=== PATIENT | female | born 1935 | race Caucasian/White ===

== ENCOUNTER 2016-12-12 16:25 | Observation (INO) ==
[2016-12-12] MEDS ORDERED: 0.9 % Sodium Chloride 1,000 ML IVC ONE (16:40)
--- NOTE | 2016-12-12 16:47 | Emergency Department Note ---
Disposition Clinical Impression: Dehydration, Nausea vomiting and diarrhea, Acute kidney injury Disposition: Admitted As Inpatient Condition: Fair Referrals: Sherly Gonzalez MD [Primary Care Provider] - Forms: ED Satisfaction Letter Time of Disposition: 18:17 Nausea/Vomiting/Diarrhea HPI - General Chief complaint: ED Nausea/Vomiting/Diarrhea Stated complaint: Flu-like symptoms Time Seen by Provider: 12/12/16 16:40 Source: family Mode of arrival: ambulatory Limitations: no limitations Nursing Notes Reviewed: Yes Vital Signs Reviewed: Yes - History of Present Illness HPI Narrative: 81-year-old who comes in with history of a cough and nausea vomiting and diarrhea. Patient states she's been sick for a week. Her husbands here with her with similar complaints. Patient had diarrhea yesterday none today also had vomiting yesterday none today. Pt Subjective Complaint: nausea, vomiting, diarrhea Onset (ago): day(s) Description of emesis: food contents (7) Description of Diarrhea: water, mucous Associated Abdominal Pain: No - Related Data Home Medications Medication Instructions Recorded Confirmed Aspirin Enteric Coated [Aspirin EC] 81 mg PO QPM 12/12/16 12/12/16 Biotin 10 mg PO QPM 12/12/16 12/12/16 Clopidogrel [Plavix] 75 mg PO QAM 12/12/16 12/12/16 Levothyroxine [Synthroid] 50 mcg PO QAM 12/12/16 12/12/16 Lisinopril/Hydrochlorothiazide 1 each PO QAM 12/12/16 12/12/16 [Zestoretic 10-12.5 mg Tablet] Simvastatin [Zocor] 40 mg PO QPM 12/12/16 12/12/16 Allergies Allergy/AdvReac Type Severity Reaction Status Date / Time No Known Allergies Allergy Verified 12/12/16 16:29 Past Medical History - Past Medical History Medical history: Reports: hyperlipidemia, kidney stones - Social History Smoking Status: Former smoker Alcohol use: Reports: none Drug use: Reports: none Course - Reevaluation(s) Reevaluation #1: 81-year-old with flulike symptoms nausea vomiting and diarrhea over the last several days. It looks like she's got renal insufficiency of there are no old labs compared to she says she hasn't been eating and drinking. We will admit for IV hydration and repeat labs. Time: 18:16 - Consultations Consultation #1: Chest with Halina Lopes's nurse practitioner, admit Time: 18:54 Vital Signs Temperature 97.7 F 12/12/16 16:26 Pulse Rate 64 12/12/16 16:26 Respiratory Rate 18 12/12/16 16:26 Blood Pressure 157/75 12/12/16 16:26 O2 Sat by Pulse Oximetry 95 12/12/16 16:26 Temperature 97.7 F 12/12/16 16:26 Pulse Rate 77 12/12/16 18:29 Respiratory Rate 18 12/12/16 18:29 Blood Pressure 148/70 12/12/16 18:29 O2 Sat by Pulse Oximetry 99 12/12/16 18:29 Oxygen Delivery Oxygen Delivery Room Air Nausea/Vomiting/Diarrhea - Lab Data Result diagrams: 12/12/16 17:13 12/12/16 17:13 Lab Results 12/12/16 12/12/16 12/12/16 Range/Units 17:13 17:13 17:13 WBC 3.2 L (4.3-11.1) K/mcL RBC 4.63 (3.82-4.97) M/mcL Hgb 13.4 (11.5-15.4) g/dL Hct 38.9 (35.3-44.9) % MCV 84.0 (83.0-100.0) fL MCH 28.9 (28.0-33.3) pg MCHC 34.4 (31.6-35.5) g/dL RDW 12.7 (11.5-14.5) % Plt Count 202 (140-400) K/mcL MPV 9.8 (9.4-12.4) fL Immature Gran % 0.3 (0-4) % Seg Neutrophils % 47.4 % Lymphocytes % 42.6 % Monocytes % 8.8 % Eosinophils % 0.3 % Basophils % 0.6 % Neutrophils # 1.5 L (1.6-8.9) K/mcL Lymphocytes # 1.4 (0.6-4.6) K/mcL Monocytes # 0.3 (0.0-1.3) K/mcL Eosinophils # 0.0 (0.0-0.6) K/mcL Basophils # 0.0 (0.0-0.2) K/mcL Reactive Lymphocytes Present A (Not Present) Platelet Estimate Normal (Normal) Sodium 127 L (136-145) mEq/L Potassium 4.5 (3.5-4.5) mEq/L Chloride 95 L (98-109) mEq/L Carbon Dioxide 17 L (19-29) mEq/L BUN 25 H (7-20) mg/dL Creatinine 1.19 H (0.57-1.11) mg/dL Est GFR ( Amer) 53 L (> 60) Est GFR (Non-Af Amer) 44 L (> 60) BUN/Creatinine Ratio 21 (6-26) Glucose 99 (70-99) mg/dL Calculated Osmolality 268 L (280-300) Calcium 9.2 (8.6-10.8) mg/dL Total Bilirubin 0.9 (0.2-1.2) mg/dL Direct Bilirubin 0.4 (0.0-0.5) mg/dL Indirect Bilirubin 0.5 (0.0-1.2) mg/dL AST 29 (5-34) Units/L ALT 13 (0-55) Units/L Alkaline Phosphatase 84 (38-126) Units/L Troponin I (0-0.03) ng/mL Serum Total Protein 7.5 (6.0-8.3) g/dL Albumin 3.7 (3.5-5.0) g/dL Globulin 3.8 H (2.4-3.5) g/dL Albumin/Globulin Ratio 1.0 L (1.1-2.2) Amylase 65 (25-125) Units/L Lipase 31 (8-78) Units/L 04/05/17 Range/Units 17:13 WBC (4.3-11.1) K/mcL RBC (3.82-4.97) M/mcL Hgb (11.5-15.4) g/dL Hct (35.3-44.9) % MCV (83.0-100.0) fL MCH (28.0-33.3) pg MCHC (31.6-35.5) g/dL RDW (11.5-14.5) % Plt Count (140-400) K/mcL MPV (9.4-12.4) fL Immature Gran % (0-4) % Seg Neutrophils % % Lymphocytes % % Monocytes % % Eosinophils % % Basophils % % Neutrophils # (1.6-8.9) K/mcL Lymphocytes # (0.6-4.6) K/mcL Monocytes # (0.0-1.3) K/mcL Eosinophils # (0.0-0.6) K/mcL Basophils # (0.0-0.2) K/mcL Reactive Lymphocytes (Not Present) Platelet Estimate (Normal) Sodium (136-145) mEq/L Potassium (3.5-4.5) mEq/L Chloride (98-109) mEq/L Carbon Dioxide (19-29) mEq/L BUN (7-20) mg/dL Creatinine (0.57-1.11) mg/dL Est GFR ( Amer) (> 60) Est GFR (Non-Af Amer) (> 60) BUN/Creatinine Ratio (6-26) Glucose (70-99) mg/dL Calculated Osmolality (280-300) Calcium (8.6-10.8) mg/dL Total Bilirubin (0.2-1.2) mg/dL Direct Bilirubin (0.0-0.5) mg/dL Indirect Bilirubin (0.0-1.2) mg/dL AST (5-34) Units/L ALT (0-55) Units/L Alkaline Phosphatase (38-126) Units/L Troponin I 0.02 (0-0.03) ng/mL Serum Total Protein (6.0-8.3) g/dL Albumin (3.5-5.0) g/dL Globulin (2.4-3.5) g/dL Albumin/Globulin Ratio (1.1-2.2) Amylase (25-125) Units/L Lipase (8-78) Units/L - EKG Data EKG attestation: Yes I reviewed and interpreted this EKG. EKG shows normal: sinus rhythm Rate: normal Rhythm: NSR ST segment depression in: v3 Interpretation: no acute changes
[2016-12-12 17:26] LABS: Basophils % 0.6 %; Eosinophils % 0.3 %; Hematocrit 38.9 % (35.3-44.9); Hemoglobin 13.4 g/dL (11.5-15.4); Immature Granulocytes % 0.3 % (0-4); Lymphocytes # 1.4 K/mcL (0.6-4.6); Lymphocytes % 42.6 %; Mean Corpuscular HGB Conc 34.4 g/dL (31.6-35.5); Mean Corpuscular Hemoglobin 28.9 pg (28.0-33.3); Mean Platelet Volume 9.8 fL (9.4-12.4); Monocytes # 0.3 K/mcL (0.0-1.3); Monocytes % 8.8 %; Neutrophils # 1.5 K/mcL (1.6-8.9); Platelet Count 202 K/mcL (140-400); Red Blood Count 4.63 M/mcL (3.82-4.97); Red Cell Distribution Width 12.7 % (11.5-14.5); Segmented Neutrophils % 47.4 %
[2016-12-12 17:41] LABS: Albumin 3.7 g/dL (3.5-5.0); Bilirubin,Direct 0.4 mg/dL (0.0-0.5); Bilirubin,Indirect 0.5 mg/dL (0.0-1.2); Bilirubin,Total 0.9 mg/dL (0.2-1.2); Calcium 9.2 mg/dL (8.6-10.8); Globulin 3.8 g/dL (2.4-3.5); Potassium 4.5 mEq/L (3.5-4.5); Total Protein 7.5 g/dL (6.0-8.3)
[2016-12-12 18:01] LABS: Platelet Estimate Normal (Normal); Reactive Lymphocytes Present (Not Present)
[2016-12-12] MEDS ORDERED: Ondansetron ODT 4 MG TAB.RAPDIS SL PRN (20:23)
[2016-12-12] MEDS ORDERED: Naloxone 0.4 MG/ML INJ IVP PRN (20:23)
[2016-12-12] MEDS ORDERED: 0.9 % Sodium Chloride 1,000 ML IVC SCH (20:30)
--- NOTE | 2016-12-12 21:18 | Internal Med History&Physical ---
<Deedee Rayo M - Last Filed: 12/12/16 21:32> Date of Encounter: 12/12/16 Time of Encounter: 20:56 Assessment and Plan (1) Dehydration Current visit: Yes Status: Acute Patient with reports of several day history of nausea, vomiting, diarrhea. Labs show electrolyte abnormalities and KAVITHA consistent with dehydration. 1L bolus given by ED. IV fluids 0.9 NS at 75mL/hr. Diet as tolerated, encourage PO fluids. Recheck labs in the morning. (2) Hyponatremia Current visit: Yes Status: Acute Patient's sodium is 127. Will hold her HCTZ. Hydrate overnight. Recheck chemistry in the morning. (3) Acute kidney injury Current visit: Yes Status: Acute BUN 25 and Cr 1.19. Likely due to poor oral intake, nausea, vomiting and dehydration. 1L bolus given in ED. Will hydrate overnight and recheck chemistry in the morning. (4) Nausea vomiting and diarrhea Current visit: Yes Status: Acute Patient reports several day history of nausea, vomiting and diarrhea. had similar symptoms, likely viral gastroenteritis. Patient reports symptoms have been improving and she is hungry. Diet as tolerated. Iv fluids 0.9NS at 75mL/hr. Encourage PO fluids. (5) DVT prophylaxis Current visit: Yes Status: Acute Ambulate with assistance anti-embolic stockings Lovenox 40mg SQ daily Internal Medicine - H&P: HPI Chief complaint: nausea, vomiting, diarrhea Admitted From: Emergency Dept Plans for Post Hospital Care: Home History of present illness: Ms. Charles is a 81 year old female with hypothyroid, HTN, HLD, CAD s/p stent to RCA, history of kidney stones, presented to the emergency department today with complaints of nausea, vomiting and diarrhea. Patient reports about a week ago she had a "cold" with nasal congestion and cough, and a few days later she started having the nausea, vomiting and diarrhea. She reports that this morning she almost passed out and so went to her PCP's office, who sent her to the ED. She denies any headache, chest pain, palpitations, shortness of breath , numbness or tingling. She denies any fever, chills, night sweats. Evaluation in the ED included a CXR which showed mild left basilar atelectasis. EKG showed sinus rhythm. WBC count was below normal at 3.2. Electrolytes were abnormal with hyponatremia, sodium of 127, chloride of 95, CO2 of 17, BUN and Creatinine elevated at 25 and 1.19, respectively. Potassium normal at 4.5. On exam, patient is alert and oriented, in no distress. Heart has regular rate and rhythm, lungs with mild expiratory rhonchi on the right. Abdomen is soft, nontender, with normal bowel sounds. Past Med Surg Social Fam HX - Past Medical History Medical history: coronary artery disease, hyperlipidemia, hypertension, kidney stones, thyroid disease - Past Surgical History Surgical History: angioplasty/stent, other (Removal of benign brain tumor) - Social History Smoking Status: Former smoker Alcohol use: none Drug use: none - Family History Father Living Status: Hx Family Cardiac Disorders: Yes Mother Living Status: Hx Family Cardiac Disorders: Yes Internal Medicine - H&P: Meds Aspirin Enteric Coated [Aspirin EC] 81 mg PO QPM 12/12/16 [History] Biotin 10 mg PO QPM 12/12/16 [History] Clopidogrel [Plavix] 75 mg PO QAM 12/12/16 [History] Levothyroxine [Synthroid] 50 mcg PO QAM 12/12/16 [History] Lisinopril/Hydrochlorothiazide [Zestoretic 10-12.5 mg Tablet] 1 each PO QAM 01/23 [History] Simvastatin [Zocor] 40 mg PO QPM 12/12/16 [History] Allergies No Known Allergies Allergy (Verified 12/12/16 16:29) All Systems PM: A 10-system review of systems was performed and is negative for pertinent findings except as documented above in the HPI. - Constitutional Constitutional: no chills, no fever(s), no night sweats - EENT Eyes: no change in vision, no discharge, no pain, no photophobia Ears: no ear discharge, no ear pain, no tinnitus Nose, mouth and throat: nasal congestion, nasal discharge, no dysphagia, no neck pain, no sore throat - Cardiovascular Cardiovascular ROS IM: no chest pain, no diaphoresis, no dyspnea, no lightheadedness, no palpitations, no syncope - Respiratory Respiratory: cough, no dyspnea, no wheezing, no excessive phlegm production - Gastrointestinal Gastrointestinal: diarrhea, nausea, vomiting, no abdominal pain, no hematemesis , no hematochezia, no melena - Genitourinary Genitourinary: no change in urinary stream, no dysuria, no flank pain, no hematuria - Musculoskeletal Musculoskeletal ROS IM: no numbness, no tingling - Integumentary Integumentary IM: no rash, no unusual bruising - Neurological Neurological ROS: no confusion, no convulsions, no focal weakness, no numbness, no tingling, no tremor(s) - Hematologic/Lymphatic Hematologic/Lymphatic: no easy bruising - Constitutional Vitals: Temp Pulse Resp BP Pulse Ox 97.5 F L 69 16 144/59 96 12/12/16 19:28 12/12/16 19:28 12/12/16 19:28 12/12/16 19:28 12/12/16 19:28 General appearance: Present: A&O X 3, pleasant, no acute distress Exam: Patient poor historian and confuses timelines. - Head Head exam: Present: atraumatic, normocephalic - Eye Eye exam: Present: PERRL, conjuntiva pink, sclera anicteric Pupils: Present: PERRL - ENT ENT exam: Present: mucous membranes dry - Neck Neck exam general surgery: Present: supple, trachea midline. Absent: lymphadenopathy - Respiratory Respiratory exam: Present: CTAB. Absent: accessory muscle use, rales, rhonchi, wheezes - Cardiovascular Cardiovascular exam: Present: RRR, +S1, +S2. Absent: diastolic murmur, gallop, rubs, systolic murmur - GI/Abdominal GI/Abdominal exam: Present: normal bowel sounds, soft, no peritoneal signs. Absent: distended, tenderness - Extremities Exam Extremities exam: Present: warm, radial pulses palpable and symetrical. Absent : calf tenderness, cyanotic, pedal edema - Neurological Exam Neurological exam: Present: CN II-XII intact, oriented X3, no focal deficits. Absent: facial droop, speech deficit - Skin Skin exam: Present: dry, intact Internal Med - H&P Results - Labs CBC & Chem 7: 12/12/16 17:13 12/12/16 17:13 Labs: All Lab Results (24 Hours) 12/12/16 12/12/16 12/12/16 Range/Units 17:13 17:13 17:13 WBC 3.2 L (4.3-11.1) K/mcL RBC 4.63 (3.82-4.97) M/mcL Hgb 13.4 (11.5-15.4) g/dL Hct 38.9 (35.3-44.9) % MCV 84.0 (83.0-100.0) fL MCH 28.9 (28.0-33.3) pg MCHC 34.4 (31.6-35.5) g/dL RDW 12.7 (11.5-14.5) % Plt Count 202 (140-400) K/mcL MPV 9.8 (9.4-12.4) fL Immature Gran % 0.3 (0-4) % Seg Neutrophils % 47.4 % Lymphocytes % 42.6 % Monocytes % 8.8 % Eosinophils % 0.3 % Basophils % 0.6 % Neutrophils # 1.5 L (1.6-8.9) K/mcL Lymphocytes # 1.4 (0.6-4.6) K/mcL Monocytes # 0.3 (0.0-1.3) K/mcL Eosinophils # 0.0 (0.0-0.6) K/mcL Basophils # 0.0 (0.0-0.2) K/mcL Reactive Lymphocytes Present A (Not Present) Platelet Estimate Normal (Normal) Sodium 127 L (136-145) mEq/L Potassium 4.5 (3.5-4.5) mEq/L Chloride 95 L (98-109) mEq/L Carbon Dioxide 17 L (19-29) mEq/L BUN 25 H (7-20) mg/dL Creatinine 1.19 H (0.57-1.11) mg/dL Est GFR ( Amer) 53 L (> 60) Est GFR (Non-Af Amer) 44 L (> 60) BUN/Creatinine Ratio 21 (6-26) Glucose 99 (70-99) mg/dL Calculated Osmolality 268 L (280-300) Calcium 9.2 (8.6-10.8) mg/dL Total Bilirubin 0.9 (0.2-1.2) mg/dL Direct Bilirubin 0.4 (0.0-0.5) mg/dL Indirect Bilirubin 0.5 (0.0-1.2) mg/dL AST 29 (5-34) Units/L ALT 13 (0-55) Units/L Alkaline Phosphatase 84 (38-126) Units/L Troponin I (0-0.03) ng/mL Serum Total Protein 7.5 (6.0-8.3) g/dL Albumin 3.7 (3.5-5.0) g/dL Globulin 3.8 H (2.4-3.5) g/dL Albumin/Globulin Ratio 1.0 L (1.1-2.2) Amylase 65 (25-125) Units/L Lipase 31 (8-78) Units/L // Range/Units 17:13 WBC (4.3-11.1) K/mcL RBC (3.82-4.97) M/mcL Hgb (11.5-15.4) g/dL Hct (35.3-44.9) % MCV (83.0-100.0) fL MCH (28.0-33.3) pg MCHC (31.6-35.5) g/dL RDW (11.5-14.5) % Plt Count (140-400) K/mcL MPV (9.4-12.4) fL Immature Gran % (0-4) % Seg Neutrophils % % Lymphocytes % % Monocytes % % Eosinophils % % Basophils % % Neutrophils # (1.6-8.9) K/mcL Lymphocytes # (0.6-4.6) K/mcL Monocytes # (0.0-1.3) K/mcL Eosinophils # (0.0-0.6) K/mcL Basophils # (0.0-0.2) K/mcL Reactive Lymphocytes (Not Present) Platelet Estimate (Normal) Sodium (136-145) mEq/L Potassium (3.5-4.5) mEq/L Chloride (98-109) mEq/L Carbon Dioxide (19-29) mEq/L BUN (7-20) mg/dL Creatinine (0.57-1.11) mg/dL Est GFR ( Amer) (> 60) Est GFR (Non-Af Amer) (> 60) BUN/Creatinine Ratio (6-26) Glucose (70-99) mg/dL Calculated Osmolality (280-300) Calcium (8.6-10.8) mg/dL Total Bilirubin (0.2-1.2) mg/dL Direct Bilirubin (0.0-0.5) mg/dL Indirect Bilirubin (0.0-1.2) mg/dL AST (5-34) Units/L ALT (0-55) Units/L Alkaline Phosphatase (38-126) Units/L Troponin I 0.02 (0-0.03) ng/mL Serum Total Protein (6.0-8.3) g/dL Albumin (3.5-5.0) g/dL Globulin (2.4-3.5) g/dL Albumin/Globulin Ratio (1.1-2.2) Amylase (25-125) Units/L Lipase (8-78) Units/L - Diagnostic Studies Chest x-ray Additional comments: Chest X-Ray 12/12/16 16:41 IMPRESSION: Mild left basilar atelectasis. D/ / Amena Madden MD / Amena Madden MD Interpreting Provider: Amena Madden MD <Steven Dunlap - Last Filed: 12/13/16 01:26> Date of Encounter: 12/13/16 - Constitutional Vitals: Temp Pulse Resp BP Pulse Ox 98.2 F 58 12 89/54 93 12/12/16 23:27 12/12/16 23:27 12/12/16 23:27 12/12/16 23:27 12/12/16 23:27 General appearance: Present: cooperative, A&O X 3, pleasant, no acute distress - ENT ENT exam: Present: mucous membranes dry, normal oropharynx - Neck Neck exam general surgery: Present: supple. Absent: tenderness - Respiratory Respiratory exam: Present: CTAB. Absent: rales, rhonchi, wheezes - Cardiovascular Cardiovascular exam: Present: RRR, +S1, +S2. Absent: systolic murmur - GI/Abdominal GI/Abdominal exam: Present: soft, no peritoneal signs. Absent: guarding, rebound, tenderness - Back Exam Back exam: Absent: CVA tenderness (L), CVA tenderness (R) - Skin Skin exam: Present: dry, warm. Absent: rash Internal Med - H&P Results - Labs CBC & Chem 7: 12/12/16 17:13 12/12/16 17:13 - Diagnostic Studies Chest x-ray Status: image reviewed by me - Attending Attestation I discussed the patient [place], PMH, ROS, lab data, and exam findings with Deedee Rayo CNP. I then saw and examined patiently independently as well. Pt was sleeping when I saw her, but she was easily arousable. She denies any complaints right now other than feeling weak and dry. She states her had the exact same symptoms she had. I reviewed her labs in detail and note that her electrolytes are consistent with adrenal insufficiency. She has no history of that and no history of prolonged/recurrent steroid use. I suspect her hyponatremia is most likely due to her HCTZ, and I agree with holding her HCTZ as well as hydrating her with aye IVF hydration. If her electrolytes do not improve with the morning labs, then I recommend proceeding with ACTH Stimulation test to rule out adrenal insufficiency. Furthermore, one must consider SIADH, especially in the setting of prior brain tumor. However, at this time, the history and exam suggest dehydration due to gastroenteritis with electrolyte imbalance complicated by HCTZ diuretic use. Other than my comments above and noted exam findings, I agree with Deedee's assessment and plan.
[2016-12-12] MEDS: BIOTIN 10 MG PO SCH (22:13)
[2016-12-12] MEDS: Aspirin Enteric Coated 81 MG Tablet PO SCH (22:13)
[2016-12-12] MEDS: 0.9 % Sodium Chloride 1,000 ML IVC SCH (22:14)
[2016-12-12] MEDS ORDERED: 0.9 % Sodium Chloride 500 ML ONE (23:58)
[2016-12-13 04:47] LABS: Basophils % 0.2 %; Eosinophils # 0.1 K/mcL (0.0-0.6); Eosinophils % 1.1 %; Hematocrit 32.8 % (35.3-44.9); Immature Granulocytes % 0.2 % (0-4); Lymphocytes # 2.2 K/mcL (0.6-4.6); Lymphocytes % 48.6 %; Mean Corpuscular HGB Conc 34.1 g/dL (31.6-35.5); Mean Corpuscular Hemoglobin 29.2 pg (28.0-33.3); Mean Corpuscular Volume 85.4 fL (83.0-100.0); Monocytes # 0.4 K/mcL (0.0-1.3); Monocytes % 8.9 %; Neutrophils # 1.9 K/mcL (1.6-8.9); Platelet Count 176 K/mcL (140-400); Red Blood Count 3.84 M/mcL (3.82-4.97); Red Cell Distribution Width 12.7 % (11.5-14.5)
[2016-12-13 04:54] LABS: Calcium 8.2 mg/dL (8.6-10.8); Potassium 4.3 mEq/L (3.5-4.5)
[2016-12-13 04:58] LABS: Hemoglobin 11.2 g/dL (11.5-15.4)
[2016-12-13 05:18] LABS: Thyroid Stimulating Hormone 1.621 mcIU/mL (0.350-4.840)
[2016-12-13 05:43] LABS: Platelet Estimate Normal (Normal); Reactive Lymphocytes Present (Not Present)
[2016-12-13] MEDS: *HR* Enoxaparin 40 MG/0.4 ML SYRINGE SQ SCH (06:22)
--- NOTE | 2016-12-13 06:42 | Electrocardiograph Report ---
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
[2016-12-13] MEDS: Aspirin Enteric Coated 81 MG Tablet PO SCH (17:30)
[2016-12-13] MEDS: 0.9 % Sodium Chloride 1,000 ML IVC SCH (17:31)
[2016-12-13] MEDS: BIOTIN 10 MG PO SCH (17:42)
[2016-12-13] MEDS ORDERED: Benzonatate 100 MG CAPSULE PO PRN (20:48)
[2016-12-14 03:22] LABS: Basophils % 0.9 %; Eosinophils # 0.1 K/mcL (0.0-0.6); Eosinophils % 1.4 %; Hemoglobin 10.7 g/dL (11.5-15.4); Immature Granulocytes % 0.2 % (0-4); Lymphocytes # 2.2 K/mcL (0.6-4.6); Lymphocytes % 49.3 %; Mean Corpuscular HGB Conc 33.4 g/dL (31.6-35.5); Mean Corpuscular Hemoglobin 28.8 pg (28.0-33.3); Mean Platelet Volume 9.4 fL (9.4-12.4); Monocytes # 0.4 K/mcL (0.0-1.3); Monocytes % 8.5 %; Platelet Count 195 K/mcL (140-400); Red Blood Count 3.72 M/mcL (3.82-4.97); Red Cell Distribution Width 12.8 % (11.5-14.5); Segmented Neutrophils % 39.7 %
[2016-12-14 03:26] LABS: Neutrophils # 1.8 K/mcL (1.6-8.9)
[2016-12-14 03:31] LABS: BUN/Creatinine Ratio 13 (6-26); Blood Urea Nitrogen 13 mg/dL (7-20); Calcium 7.9 mg/dL (8.6-10.8); Carbon Dioxide 18 mEq/L (19-29); Chloride 107 mEq/L (98-109); Glucose 91 mg/dL (70-99); Magnesium 1.8 mg/dL (1.6-2.6); Osmolality,Calculated 278 (280-300); Potassium 4.2 mEq/L (3.5-4.5); Sodium 134 mEq/L (136-145); eGFR For African Americans > 60 (> 60); eGFR For Non-African Americans 52 (> 60)
[2016-12-14 03:57] LABS: Platelet Estimate Normal (Normal)
[2016-12-14] MEDS: *HR* Enoxaparin 40 MG/0.4 ML SYRINGE SQ SCH (06:10)
[2016-12-14] MEDS: 0.9 % Sodium Chloride 1,000 ML IVC SCH (08:19)
[2016-12-14 14:23] VITALS: BP 107/66
--- NOTE | 2016-12-14 16:57 | Discharge Summary ---
Date of Encounter: 12/14/16 Time of Encounter: 16:54 - Discharge Diagnosis (1) Gastroenteritis Priority: Primary Status: Acute (2) Acute kidney injury Priority: Primary Status: Acute (3) Hyponatremia Priority: Primary Status: Acute (4) Essential hypertension Priority: Secondary Status: Chronic (5) CAD (coronary artery disease) Priority: Secondary Status: Chronic Qualifiers: Coronary Disease-Associated Artery/Lesion type: [place] artery [place] vs. transplanted heart: [place] heart Associated angina: without angina Qualified Code(s): I25.10 - Atherosclerotic heart disease of [place] coronary artery without angina pectoris (6) Hypothyroidism Priority: Secondary Status: Chronic Qualifiers: Hypothyroidism type: unspecified Qualified Code(s): E03.9 - Hypothyroidism , unspecified - Discharge Medications Home Medications: Aspirin Enteric Coated [Aspirin EC] 81 mg PO QPM 12/12/16 [History] Biotin 10 mg PO QPM 12/12/16 [History] Clopidogrel [Plavix] 75 mg PO QAM 12/12/16 [History] Levothyroxine [Synthroid] 50 mcg PO QAM 12/12/16 [History] Simvastatin [Zocor] 40 mg PO QPM 12/12/16 [History] Lisinopril/Hydrochlorothiazide [Zestoretic 10-12.5 mg Tablet] 1 each PO QAM #0 12/14/16 [Rx] Allergies/Adverse Reactions: Allergies No Known Allergies Allergy (Verified 12/12/16 16:29) Date of admission: 12/12/16 18:56 Primary care physician: Sherly Gonzalez, Discharging clinician: Destini Vazquez Anticipated date of discharge: 12/14/16 - Patient Status Disposition: Home, Self-Care Condition: Good Functional capacity at discharge: independent ambulation Overall status at discharge: patient is progressing back to baseline - Discharge Instructions Follow Up With: Sherly Gonzalez MD [Primary Care Provider] - 12/21/16 11:40 am - Diet and Activity Activity: resume usual activities as tolerated Diet: advance to your usual diet, low fat, low cholesterol, low salt diet Hospital course: Ms. Charles is a 81 year old female admitted with persistent nausea, vomiting and diarrhea. Patient was kept NPO and given IV hydration along with PRN antiemetics. Her symptoms are significantly improved today and she is able to tolerate oral diet with no abdominal pain. Patient likely has viral gastroenteritis. She also had KAVITHA due to prerenal etiology from dehydration from GI losses and serum creatinine is now improving. Patient would like to go home today and she is medically stable for discharge. - Time Spent with Patient Total time spent providing and/or coordinating discharge services: Greater than 30 minutes (45 min) - Constitutional Vitals: Temp Pulse Resp BP Pulse Ox 97.9 F 69 17 107/66 95 12/14/16 14:22 12/14/16 14:22 12/14/16 14:22 12/14/16 14:22 12/14/16 14:22 General appearance: Present: cooperative, A&O X 3, answers questions appropriately - Respiratory Respiratory exam: Present: CTAB. Absent: accessory muscle use, rales, rhonchi, wheezes - Cardiovascular Cardiovascular exam: Present: RRR, +S1, +S2. Absent: diastolic murmur, gallop, rubs, systolic murmur
--- NOTE | 2016-12-16 17:44 | Internal Med Progress Note ---
Date of Encounter: 12/13/16 Time of Encounter: 15:30 - Assessment and plan (1) Gastroenteritis Status: Acute Assessment and plan: Patient likely has viral gastroenteritis. Continue supportive care with IV hydration, when necessary Zofran. Clear liquid diet and advance as tolerated. Continue to monitor and supplement electrolytes. Influenza nasal swab negative. (2) Acute kidney injury Status: Acute Assessment and plan: Likely related to prerenal etiology due to dehydration. Serum creatinine noted to be improving with IV hydration. Continue to monitor closely. (3) Hyponatremia Status: Acute Assessment and plan: Likely due to poor oral intake and GI losses. Serum sodium noted to be improving with IV hydration and holding diuretics. (4) Essential hypertension Status: Chronic (5) CAD (coronary artery disease) Status: Chronic Qualifiers: Coronary Disease-Associated Artery/Lesion type: [place] artery [place] vs. transplanted heart: [place] heart Associated angina: without angina Qualified Code(s): I25.10 - Atherosclerotic heart disease of [place] coronary artery without angina pectoris (6) Hypothyroidism Status: Chronic Qualifiers: Hypothyroidism type: unspecified Qualified Code(s): E03.9 - Hypothyroidism , unspecified - Subjective Interval history: Reports feeling slightly better. Continues to have generalized weakness and fatigue, improved nausea, vomiting and diarrhea. Able to tolerate clear liquids. - Constitutional Vitals: Temp Pulse Resp BP Pulse Ox 97.9 F 69 17 107/66 95 12/14/16 14:22 12/14/16 14:22 12/14/16 14:22 12/14/16 14:22 12/14/16 14:22 General appearance: Present: mild distress, A&O X 3, answers questions appropriately - Respiratory Respiratory exam: Present: CTAB. Absent: accessory muscle use, rales, rhonchi, wheezes - Cardiovascular Cardiovascular exam: Present: RRR, +S1, +S2. Absent: diastolic murmur, gallop, rubs, systolic murmur - GI/Abdominal GI/Abdominal exam: Present: normal bowel sounds, soft, no peritoneal signs. Absent: distended, tenderness - Extremities Exam Extremities exam: Present: warm, radial pulses palpable and symetrical. Absent : calf tenderness, cyanotic, pedal edema Internal Medicine: Result - Labs CBC & Chem 7: 12/14/16 03:05 12/14/16 03:05 Consult Discharge Plan - Plan Referrals: Sherly Gonzalez MD [Primary Care Provider] - 12/21/16 11:40 am
== END 2016-12-14 17:35 | disposition home or self-care (01) ==
LOC: EMEROO 16:25 → 3BNU 16:25 → SUATTDRO 18:56 → 3BNU 19:10
PROVIDERS: ADMIT Nurse Practitioner Acute Care; ATTEND Internal Medicine